=== PATIENT | male | born 1965 | race African-American/Black ===

== ENCOUNTER 2022-01-19 23:41 | Emergency (ER) | payer OTHER ==
[~2022-01-19] VITALS: Ht 175.3 cm; Wt 95.3 kg
[2022-01-20 00:21] LABS: BASOPHILS # (AUTO) 0.1 K/uL (0.0-0.2); BASOPHILS % (AUTO) 1.1 % (0.0-2.0); EOSINOPHILS % (AUTO) 1.4 % (0.0-6.0); HEMATOCRIT 40 % (39-51); HEMOGLOBIN 13.5 g/dL (13.5-17.5); LYMPHOCYTES % (AUTO) 23.8 % (20.0-44.0); MEAN CORPUSCULAR HGB CONC 34 g/dl (31.0-36.0); MEAN CORPUSCULAR VOLUME 88 fL (80-96); MONOCYTES # (AUTO) 0.6 K/uL (0.1-1.30); MONOCYTES % (AUTO) 6.6 % (2.0-12.0); NEUTROPHILS # (AUTO) 5.7 K/uL (1.8-8.9); NEUTROPHILS % (AUTO) 67.1 % (43.0-81.0); PLATELET COUNT (AUTO) 211 K/uL (150-450); RED BLOOD CELL COUNT(AUTO) 4.53 MIL/uL (4.5-6.0); WHITE BLOOD COUNT (AUTO) 8.4 K/uL (4.3-11.0)
[2022-01-20 00:24] VITALS: BP 143/81
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
[2022-01-20 00:27] LABS: BILIRUBIN,URINE NEGATIVE (NEGATIVE); COLOR,URINE YELLOW (YELLOW); LEUKOCYTE ESTERASE ,URINE NEGATIVE (NEGATIVE); NITRITE, URINE NEGATIVE (NEGATIVE); PROTEIN,URINE NEGATIVE (NEGATIVE); UGLUCOSE NEGATIVE (NEGATIVE); UROBILINOGEN,URINE 0.2 EU/dL (0.2)
[2022-01-20 00:36] LABS: CALCIUM, SERUM 8.8 mg/dL (8.5-10.1); CREATININE 1.2 mg/dL (0.6-1.3); POTASSIUM 4.1 mmol/L (3.5-5.1)
[2022-01-20 00:40] LABS: ALBUMIN 4.2 g/dL (3.4-5.0); BILIRUBIN,DIRECT 0.1 mg/dL (0.0-0.2); BILIRUBIN,TOTAL 0.4 mg/dL (0.2-1.0); TOTAL PROTEIN, SERUM 7.4 g/dL (6.4-8.2)
--- NOTE | 2022-01-20 04:16 | NUR ---
FACESHEET AND CLINICALS FAXED TO [facility].
--- NOTE | 2022-01-20 05:27 | NUR ---
ROWAN FROM [facility] CALLED. PT ACCEPTED AT [facility] UNDER DR. RAZO. FOR REPORT, CALL [phone] AND ASK TO BE REROUTED TO UNIT 1.
--- NOTE | 2022-01-20 05:31 | NUR ---
ARRANGED BLS TRANSPORT WITH [facility] AND SPOKE WITH RIMA. ETA IS 60 MIN
--- NOTE | 2022-01-20 05:53 | NUR ---
REPORT GIVEN TO ROXY MADDOX UNIT 1 RN FOR DARIO
--- NOTE | 2022-01-20 06:55 | NUR ---
[facility] AT BEDSIDE FOR TRANSPORT.
== END 2022-01-20 06:57 ==
LOC: ER 23:48
DX: R45.851 Suicidal ideations (principal); F19.10 Other psychoactive substance abuse, uncomplicated; Z20.822 Contact with and (suspected) exposure to COVID-19
CPT/HCPCS: 36415; 80048; 80076; 80143; 80307; 80320; 81003; 85025; 87426; 99285; C9803; G0480

== ENCOUNTER 2022-03-15 18:04 | Emergency (ER) | payer OTHER ==
[~2022-03-15] VITALS: Ht 180.3 cm; Wt 105.2 kg
--- NOTE | 2022-03-15 18:05 | NUR ---
SEEN AND EXAMINED BY DR GARCÍA
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
[2022-03-15 19:00] LABS: CALCIUM, SERUM 8.4 mg/dL (8.5-10.1); CARBON DIOXIDE 22 mmol/L (21-32); CHLORIDE 102 mmol/L (98-107); CREATININE 1.1 mg/dL (0.6-1.3); GLUCOSE 121 mg/dL (74-106); SODIUM SERUM 139 mmol/L (136-145); UREA NITROGEN, BLOOD 14 mg/dL (7-18)
--- NOTE | 2022-03-15 19:00 | NUR ---
URINE SAMPLE COLLECTED AND SENT TO LAB
[2022-03-15 19:04] LABS: ALANINE AMINOTRANSFERASE 19 U/L (12-78); ALBUMIN 4.5 g/dL (3.4-5.0); ALCOHOL, BLOOD < 3 mg/dL (0-0); ALKALINE PHOSPHATASE 88 U/L (46-116); ASPARTATE AMINOTRANSFERASE 11 U/L (15-37); BILIRUBIN,DIRECT 0.1 mg/dL (0.0-0.2); BILIRUBIN,TOTAL 0.4 mg/dL (0.2-1.0); TOTAL PROTEIN, SERUM 7.5 g/dL (6.4-8.2)
--- NOTE | 2022-03-15 19:08 | NUR ---
RAPID COVID SWAB DONE AND SENT TO LAB
[2022-03-15 19:54] LABS: BASOPHILS # (AUTO) 0.1 K/uL (0.0-0.2); BASOPHILS % (AUTO) 1.1 % (0.0-2.0); EOSINOPHILS % (AUTO) 2.1 % (0.0-6.0); HEMATOCRIT 40 % (39-51); HEMOGLOBIN 13.6 g/dL (13.5-17.5); LYMPHOCYTES # (AUTO) 2.4 K/uL (0.8-4.8); LYMPHOCYTES % (AUTO) 32.8 % (20.0-44.0); MEAN CORPUSCULAR HGB CONC 34 g/dl (31.0-36.0); MEAN CORPUSCULAR VOLUME 88 fL (80-96); MONOCYTES # (AUTO) 0.4 K/uL (0.1-1.30); MONOCYTES % (AUTO) 5.7 % (2.0-12.0); NEUTROPHILS # (AUTO) 4.2 K/uL (1.8-8.9); NEUTROPHILS % (AUTO) 58.3 % (43.0-81.0); PLATELET COUNT (AUTO) 171 K/uL (150-450); RED BLOOD CELL COUNT(AUTO) 4.47 MIL/uL (4.5-6.0); WHITE BLOOD COUNT (AUTO) 7.2 K/uL (4.3-11.0)
[2022-03-15 20:50] LABS: BILIRUBIN,URINE NEGATIVE (NEGATIVE); COLOR,URINE YELLOW (YELLOW); LEUKOCYTE ESTERASE ,URINE NEGATIVE (NEGATIVE); NITRITE, URINE NEGATIVE (NEGATIVE); PROTEIN,URINE NEGATIVE (NEGATIVE); UGLUCOSE NEGATIVE (NEGATIVE); UROBILINOGEN,URINE 0.2 EU/dL (0.2)
--- NOTE | 2022-03-15 22:49 | NUR ---
facesheet and clinicals faxed to [facility].
--- NOTE | 2022-03-16 02:05 | NUR ---
ACCEPTED AT [facility] ACCEPTING MD DR KERR REPORT
--- NOTE | 2022-03-16 02:28 | NUR ---
CALLED [facility] FOR TRANSPORT PER JOVANNI ETA- 70-90 MIN.
--- NOTE | 2022-03-16 03:42 | NUR ---
report given to ivania at [facility]
--- NOTE | 2022-03-16 04:13 | NUR ---
picked up by [facility] unit 330 in stable condition. belongings transferred with patient.
[2022-03-16 04:30] VITALS: BP 152/86
== END 2022-03-16 04:20 ==
LOC: ER 18:13
DX: R45.851 Suicidal ideations (principal); F19.10 Other psychoactive substance abuse, uncomplicated; Z20.822 Contact with and (suspected) exposure to COVID-19; F15.10 Other stimulant abuse, uncomplicated; F10.10 Alcohol abuse, uncomplicated; Y90.0 Blood alcohol level of less than 20 mg/100 ml; Z59.00 Homelessness unspecified; F20.0 Paranoid schizophrenia
CPT/HCPCS: 36415; 80048; 80076; 80143; 80307; 80320; 81003; 85025; 87426; 99285; C9803; G0480

== ENCOUNTER 2022-05-10 01:53 | Emergency (ER) | payer OTHER ==
[~2022-05-10] VITALS: Ht 182.9 cm; Wt 97.5 kg
--- NOTE | 2022-05-10 02:20 | NUR ---
BIBSELF C/O +SI NO PLAN, WANTS VOL PSYCH ADMIT. -HI . PT A/OX4. TOLERATING R/A WELL WITH NO SOB, RESP EVEN AND NON LABORED. CONNECTED PT TO POX AND MONITOR. PT IN GOWN, BELONGINGS COLLECTED AND IN LOCKER, WANDED BY SECURITY. SAFETY MEASURES IN PLACE.
--- NOTE | 2022-05-10 02:31 | NUR ---
URINE COLLECTED SENT TO LAB
--- NOTE | 2022-05-10 02:32 | NUR ---
COVID SWAB COLLECTED SENT TO LAB
--- NOTE | 2022-05-10 02:35 | NUR ---
PINKING SEWING MACHINE OPERATOR AT PT'S BEDSIDE
[2022-05-10 02:56] LABS: BILIRUBIN,URINE NEGATIVE (NEGATIVE); COLOR,URINE YELLOW (YELLOW); LEUKOCYTE ESTERASE ,URINE NEGATIVE (NEGATIVE); NITRITE, URINE NEGATIVE (NEGATIVE); PH,URINE 6.5 (5.0-8.0); PROTEIN,URINE NEGATIVE (NEGATIVE); UGLUCOSE NEGATIVE (NEGATIVE); UROBILINOGEN,URINE 0.2 EU/dL (0.2)
[2022-05-10 03:16] LABS: BASOPHILS # (AUTO) 0.1 K/uL (0.0-0.2); BASOPHILS % (AUTO) 1.3 % (0.0-2.0); HEMATOCRIT 42 % (39-51); HEMOGLOBIN 14.1 g/dL (13.5-17.5); LYMPHOCYTES # (AUTO) 2.7 K/uL (0.8-4.8); LYMPHOCYTES % (AUTO) 43.2 % (20.0-44.0); MEAN CORPUSCULAR HGB CONC 34 g/dl (31.0-36.0); MEAN CORPUSCULAR VOLUME 88 fL (80-96); MONOCYTES # (AUTO) 0.5 K/uL (0.1-1.30); MONOCYTES % (AUTO) 8.2 % (2.0-12.0); NEUTROPHILS # (AUTO) 2.9 K/uL (1.8-8.9); NEUTROPHILS % (AUTO) 45.3 % (43.0-81.0); PLATELET COUNT (AUTO) 239 K/uL (150-450); RED BLOOD CELL COUNT(AUTO) 4.72 MIL/uL (4.5-6.0); WHITE BLOOD COUNT (AUTO) 6.4 K/uL (4.3-11.0)
[2022-05-10 03:47] LABS: ALANINE AMINOTRANSFERASE 34 U/L (12-78); ALBUMIN 4.7 g/dL (3.4-5.0); ALKALINE PHOSPHATASE 96 U/L (46-116); ASPARTATE AMINOTRANSFERASE 24 U/L (15-37); BILIRUBIN,DIRECT 0.1 mg/dL (0.0-0.2); BILIRUBIN,TOTAL 0.6 mg/dL (0.2-1.0); CARBON DIOXIDE 27 mmol/L (21-32); CHLORIDE 101 mmol/L (98-107); GLUCOSE 114 mg/dL (74-106); POTASSIUM 3.9 mmol/L (3.5-5.1); SODIUM SERUM 138 mmol/L (136-145); TOTAL PROTEIN, SERUM 8.5 g/dL (6.4-8.2); UREA NITROGEN, BLOOD 13 mg/dL (7-18)
[2022-05-10 03:48] LABS: ACETAMINOPHEN 0 ug/ml (10-30); ALCOHOL, BLOOD < 3 mg/dL (0-0)
--- NOTE | 2022-05-10 04:09 | NUR ---
FACESHEET AND CLINICALS FAXED TO [facility].
--- NOTE | 2022-05-10 08:55 | NUR ---
DOMINGA called [facility] TEL:[phone] regarding acceptance and Suma stated she is waiting to hear feeback from linen room houseperson. Noted.
--- NOTE | 2022-05-10 09:57 | NUR ---
CALLED [facility] WILL GET BACK TO US AFTER 1200 PER LADAN.
--- NOTE | 2022-05-10 10:29 | NUR ---
SS consult: SS Consult requested for SI. The pt. is a 56 year-old Black male patient who came in for SI. Upon SS consult, the pt. is Alert & Oriented x 4 and makes good eye contact. The pt. appears well-groomed with anxious mood & affect. Pt.'s has slightly slurred speech possibly due to teeth. Per pt. he has been diagnosed with Paranoid Schizophrenia in the past and per pt. his medication have not been working for him anymore. Per pt. he has been on Remeron and Risperdal for a long time. Pt. stated he is currently experiencing thoughts of suicide and has a history of multiple suicide attempts. Pt. denies current HI and states he has intermittent paranoid hallucinations. Per pt. he sees and hears people that are following him. SW explored pt.'s living situation. Patient states he currently resides at home with family [[address] [facility] [address]; [phone]]. SW explored pt.'s drug & ETOH use. Pt. states he snorts Meth or Cocaine if he is hanging out with his "bad friends" and likes to drink beer. Sper pt. he has gone to [facility] before for drug and alcohol rehab. Per pt. he is ambulatory and independent with all his ADL's. DOMINGA explored pt.'s support system. Pt. states his family is supportive and he sees psychiatrists at [facility] when he needs his medications adjusted. Plan: SW was referred pt. to [facility] [[address] [place] [address] FAX:[phone]] for inpatient psychiatric treatment. DOMINGA provided pt. with mental health and he accepted them. DOMINGA provided pt. with the following resources: ADDICTION RESOURCES For Drugs and Alcohol [facility] sober living Referrals For Rehabilitation once sober Address:[address] [place] [address] [facility] Rehabilitation Program [address] [place] [address] Detox/residential [facility] Substance Abuse Helpline ([facility]) Outpatient, residential treatment, recovery support for youth/adults [facility] www.actionfamilycounseling.MinoMonsters [facility] Teen programs for drug/alcohol education and support All Lucero Saeed. Program for adults, sliding scale provides support and education [facility] www.Agile Edge TechnologiesLumidigmation.org [place]; Detox/residential treatment programs; transition to sober living [facility] www.cri-help.org [place]; Outpatient and residential treatment programs; transition to sober living [facility] TEL: [phone] [facility] [place] [facility] Brandon Guerra; Outpatient education and supportive programs for teens and adults [place] [facility] www.[facility].org [place]; Residential treatment and work program for females only [facility] www.[facility].StyleSeek [place]: Outpatient/residential treatment program for teens and young adults [facility] www.[facility].org [facility] Detox, inpatient, outpatient for adults and youth [facility], [facility]. [place]; Outpatient programs and referrals to community residential programs. Alcoholics Anonymous -SFV information and meeting and scheduleswww.aa-intergroup.org Lauri https://al-anon.org/ [place] support groups for family of alcoholics. Marijuana Anonymous www.madistrict6.org -SFV listing of meetings Narcotics Anonymous www.na.org SOBER LIVING RESOURCES [facility] www.soberhousing.net A non-profit agency that provides resources to recovery and sober living homes throughout [facility] Men's Sober Living Homes: A Work in Progress, [facility], [place] [facility] Women's Sober Living Homes: [facility] x [phone] My New ALEX Leonardo [facility]Los [facility] Coed Sober Living Homes: [facility] [place] Counseling--Outpatient [facility] [address], [place] [address] (Specializes in in-depth psychotherapy for emotional distress: anxiety, depression, interpersonal conflicts, life transitions, childhood abuse) [facility] [address] [place] [address] (Assist with solving problem marital difficulties, separation & divorce, aging parents, & grief, chronic & terminal illness) [facility] [address] [place] [address] (Deal with loss & grief, anxiety, marital difficulties) Homebound/Mental Health Services [address], [address] [place] [address] (Provide in-home mental services to people who are incapable of leaving their homes) [facility] Needs of the Elderly Senior Service/Resource Center [address] [place] [address] [facility] [address] [place] [address] Mental Health Services Shea Didier [place] [address] [place] [address] Services: Outpatient therapy for children, teens, young adults, adults, older adults, and families; Psychiatric services, medication support Psychiatric Outpatient Services [facility] Partial Hospitalization and Intensive Outpatient Program (Managed Care and [place] Only)[address] [address] [facility] [phone] [facility] Partial Hospitalization and Outpatient [address] [place], [place] [phone] [facility] [address] [place], [place] [phone] [facility] Partial Hospitalization and Outpatient Shejojr[address] Emmehul [facility] Brandon Guerra, [phone] Crisis and Hotline Telephone Numbers 24-Hour service unless stated [place] Crisis Hotlines: [facility] Mental Health/Crisis Line........797.161.4034 Suicide Prevention Center (24 Hours).......191.232.5697 Suicide Prevention Crisis Center.......423.995.1753 (24 Hours) Assaults Against Women Hotline.........918.622.2251 (24 Hours -- [facility]) Women and Children Crisis Alf...........[phone] (24 Hours) Child Abuse Hotline............509.837.2970 [facility] Childrens Services [facility] Treatment [facility] (24 Hours)..........[phone] Alcoholics Anonymous (24 Hours)..........[phone] Cocaine Anonymous (24 Hours)............[phone] Narcotics Anonymous (24 Hours)..........[phone] [address] [facility] [address], [place] [address]
--- NOTE | 2022-05-10 14:15 | NUR ---
LADAN FROM [facility] CALLED, PT ACCEPTED UNDER DR. KERR TO [facility] PLEASE CALL [phone] FOR REPORT.
--- NOTE | 2022-05-10 14:22 | NUR ---
ETA FOR PICKUP IS 1540 AFTER SHIFT REPORT
[2022-05-10 14:30] VITALS: BP 127/77
--- NOTE | 2022-05-10 15:45 | NUR ---
patient picked up by [facility] in no distress, all pateint's belongings sent with patient, stable at this time, denies any pain.
== END 2022-05-10 15:45 ==
LOC: ER 01:56
DX: R45.851 Suicidal ideations (principal); F15.10 Other stimulant abuse, uncomplicated; Z20.822 Contact with and (suspected) exposure to COVID-19; Z59.00 Homelessness unspecified; F20.0 Paranoid schizophrenia
CPT/HCPCS: 99285; 85025; 80048; 80076; 81003; 36415; 87426; 80143; 80320; 80307; C9803; G0480

== ENCOUNTER 2022-08-25 19:46 | Emergency (ER) | payer OTHER ==
[~2022-08-25] VITALS: Ht 180.3 cm; Wt 106.6 kg
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
[2022-08-25 21:17] LABS: BILIRUBIN,URINE NEGATIVE (NEGATIVE); COLOR,URINE YELLOW (YELLOW); LEUKOCYTE ESTERASE ,URINE NEGATIVE (NEGATIVE); NITRITE, URINE NEGATIVE (NEGATIVE); PROTEIN,URINE TRACE mg/dl (NEGATIVE); UGLUCOSE NEGATIVE (NEGATIVE); UROBILINOGEN,URINE 0.2 EU/dL (0.2)
[2022-08-25 21:23] LABS: BASOPHILS # (AUTO) 0.1 K/uL (0.0-0.2); BASOPHILS % (AUTO) 1.1 % (0.0-2.0); EOSINOPHILS % (AUTO) 0.4 % (0.0-6.0); HEMATOCRIT 43 % (39-51); HEMOGLOBIN 14.5 g/dL (13.5-17.5); LYMPHOCYTES # (AUTO) 2.9 K/uL (0.8-4.8); LYMPHOCYTES % (AUTO) 32.3 % (20.0-44.0); MEAN CORPUSCULAR HGB CONC 34 g/dl (31.0-36.0); MEAN CORPUSCULAR VOLUME 88 fL (80-96); MONOCYTES # (AUTO) 0.7 K/uL (0.1-1.30); MONOCYTES % (AUTO) 7.3 % (2.0-12.0); NEUTROPHILS # (AUTO) 5.3 K/uL (1.8-8.9); NEUTROPHILS % (AUTO) 58.9 % (43.0-81.0); PLATELET COUNT (AUTO) 221 K/uL (150-450); RED BLOOD CELL COUNT(AUTO) 4.88 MIL/uL (4.5-6.0)
[2022-08-25 21:39] LABS: BACTERIA,URINE 3+ /HPF (None Seen); MUCUS,URINE Few /LPF (None Seen); RBC,URINE 0-2 /HPF (0-2); SQUAMOUS EPITHELIAL CELL,UR 0-2 /HPF (None Seen); WBC,URINE 0-2 /HPF (0-3)
[2022-08-25 21:48] LABS: ALANINE AMINOTRANSFERASE 38 U/L (12-78); ALBUMIN 4.6 g/dL (3.4-5.0); ALCOHOL, BLOOD < 3 mg/dL (0-0); ALKALINE PHOSPHATASE 80 U/L (46-116); ASPARTATE AMINOTRANSFERASE 31 U/L (15-37); BILIRUBIN,DIRECT 0.2 mg/dL (0.0-0.2); BILIRUBIN,TOTAL 0.6 mg/dL (0.2-1.0); CARBON DIOXIDE 27 mmol/L (21-32); CHLORIDE 101 mmol/L (98-107); CREATININE 1.2 mg/dL (0.6-1.3); GLUCOSE 129 mg/dL (74-106); POTASSIUM 4.2 mmol/L (3.5-5.1); SODIUM SERUM 136 mmol/L (136-145); TOTAL PROTEIN, SERUM 8.4 g/dL (6.4-8.2); UREA NITROGEN, BLOOD 15 mg/dL (7-18)
[2022-08-25 23:01] LABS: ACETAMINOPHEN 0 ug/ml (10-30)
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
--- NOTE | 2022-08-26 04:16 | NUR ---
PRAVIN AT PT'S BEDSIDE FOR EVAL
--- NOTE | 2022-08-26 04:38 | NUR ---
PT IS MEDICALLY AND PSYCHIATRICALLY CLEARED FOR DISCHARGE. PT IS IN STABLE CONDITION. ALL BELONGINGS WAS GIVEN BACK TO THE PATIENT.
[2022-08-26 04:40] VITALS: BP 148/75
== END 2022-08-26 04:48 | disposition home or self-care (01) ==
LOC: ER 19:56
DX: R45.851 Suicidal ideations (principal); F15.10 Other stimulant abuse, uncomplicated; F20.0 Paranoid schizophrenia; F32.A Depression, unspecified; Z20.822 Contact with and (suspected) exposure to COVID-19
CPT/HCPCS: 99285; 85025; 80048; 87086; 80076; 81001; 36415; 87426; 80143; 80320; 80307; C9803; G0480

== ENCOUNTER 2022-08-26 10:28 | Emergency (ER) | payer OTHER ==
[~2022-08-26] VITALS: Ht 180.3 cm; Wt 106.6 kg
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
[2022-08-26 11:08] LABS: BASOPHILS # (AUTO) 0.1 K/uL (0.0-0.2); BASOPHILS % (AUTO) 1.5 % (0.0-2.0); EOSINOPHILS % (AUTO) 0.5 % (0.0-6.0); HEMATOCRIT 43 % (39-51); LYMPHOCYTES # (AUTO) 2.1 K/uL (0.8-4.8); LYMPHOCYTES % (AUTO) 31.7 % (20.0-44.0); MEAN CORPUSCULAR HGB CONC 33 g/dl (31.0-36.0); MEAN CORPUSCULAR VOLUME 89 fL (80-96); MONOCYTES # (AUTO) 0.7 K/uL (0.1-1.30); MONOCYTES % (AUTO) 9.8 % (2.0-12.0); NEUTROPHILS # (AUTO) 3.8 K/uL (1.8-8.9); NEUTROPHILS % (AUTO) 56.5 % (43.0-81.0); PLATELET COUNT (AUTO) 227 K/uL (150-450); WHITE BLOOD COUNT (AUTO) 6.8 K/uL (4.3-11.0)
[2022-08-26 11:20] LABS: CALCIUM, SERUM 9.2 mg/dL (8.5-10.1); CARBON DIOXIDE 31 mmol/L (21-32); CHLORIDE 100 mmol/L (98-107); CREATININE 1.2 mg/dL (0.6-1.3); GLUCOSE 121 mg/dL (74-106); POTASSIUM 4.1 mmol/L (3.5-5.1); SODIUM SERUM 137 mmol/L (136-145); UREA NITROGEN, BLOOD 15 mg/dL (7-18)
--- NOTE | 2022-08-26 12:54 | NUR ---
GALEN ([facility]) [phone].
[2022-08-26 14:09] LABS: BILIRUBIN,URINE NEGATIVE (NEGATIVE); COLOR,URINE ORANGE (YELLOW); LEUKOCYTE ESTERASE ,URINE NEGATIVE (NEGATIVE); NITRITE, URINE NEGATIVE (NEGATIVE); PROTEIN,URINE 2+ mg/dl (NEGATIVE); UGLUCOSE NEGATIVE (NEGATIVE); UROBILINOGEN,URINE 0.2 EU/dL (0.2)
[2022-08-26 14:26] LABS: BACTERIA,URINE Few /HPF (None Seen); RBC,URINE 0-2 /HPF (0-2)
[2022-08-26 15:26] LABS: ALANINE AMINOTRANSFERASE 36 U/L (12-78); ALBUMIN 4.4 g/dL (3.4-5.0); ALCOHOL, BLOOD < 3 mg/dL (0-0); ALKALINE PHOSPHATASE 73 U/L (46-116); ASPARTATE AMINOTRANSFERASE 25 U/L (15-37); BILIRUBIN,DIRECT 0.2 mg/dL (0.0-0.2); BILIRUBIN,TOTAL 0.8 mg/dL (0.2-1.0)
--- NOTE | 2022-08-26 16:35 | NUR ---
FAXED CLINICALS TO [facility].
--- NOTE | 2022-08-26 16:45 | NUR ---
FAXED CLINICALS TO [facility] [phone]
--- NOTE | 2022-08-26 17:22 | NUR ---
ACCEPTED TO [facility] UNDER DR. MILA GLYNN UNIT ROOM 285-A CALL [phone] FOR REPORT.
--- NOTE | 2022-08-26 17:40 | NUR ---
[facility] CALLED FOR TRANSPORT WITH ETA 1900 PER KATHLEEN.
--- NOTE | 2022-08-26 19:21 | NUR ---
CALLED TO GIVE REPORT, NURSE MCKEON NOT AVAILABLE AT THIS TIME
--- NOTE | 2022-08-26 20:00 | NUR ---
PER [facility], UNIT DELAYED ANOTHER 45 TO 60 MINUTES.
[2022-08-26 20:07] VITALS: BP 148/89
--- NOTE | 2022-08-26 20:08 | NUR ---
REPORT GIVEN TO LINDA ROSENTHAL FOR DARIO
--- NOTE | 2022-08-26 21:46 | NUR ---
[facility] AT BEDSIDE FOR TRANSPORTATION
== END 2022-08-26 22:13 ==
LOC: ER 10:30
DX: R45.851 Suicidal ideations (principal); F15.10 Other stimulant abuse, uncomplicated; R07.89 Other chest pain; F41.9 Anxiety disorder, unspecified; F20.0 Paranoid schizophrenia
CPT/HCPCS: 36415; 71045-TC; 80048-TC; 80076-TC; 81001; 84484-TC; 85025-TC; G0480

== ENCOUNTER 2024-01-16 03:00 | Emergency (ER) | payer OTHER ==
[~2024-01-16] VITALS: Ht 180.3 cm; Wt 111.1 kg
[2024-01-16 05:28] VITALS: BP 157/96; TEMP 98; O2SAT 97
[2024-01-16 06:42] LABS: BASOPHILS # (AUTO) 0.1 K/uL (0.0-0.2); BASOPHILS % (AUTO) 1.7 % (0.0-2.0); EOSINOPHILS # (AUTO) 0.3 K/uL (0.0-0.7); EOSINOPHILS % (AUTO) 3.6 % (0.0-6.0); HEMATOCRIT 44 % (39-51); HEMOGLOBIN 14.8 g/dL (13.5-17.5); LYMPHOCYTES # (AUTO) 2.5 K/uL (0.8-4.8); LYMPHOCYTES % (AUTO) 32.1 % (20.0-44.0); MEAN CORPUSCULAR HEMOGLOBIN 30 PG (26.0-33.0); MEAN CORPUSCULAR HGB CONC 34 g/dl (31.0-36.0); MEAN CORPUSCULAR VOLUME 90 fL (80-96); MONOCYTES # (AUTO) 0.8 K/uL (0.1-1.30); MONOCYTES % (AUTO) 9.8 % (2.0-12.0); NEUTROPHILS # (AUTO) 4.1 K/uL (1.8-8.9); NEUTROPHILS % (AUTO) 52.8 % (43.0-81.0); PLATELET COUNT (AUTO) 212 K/uL (150-450); RED BLOOD CELL COUNT(AUTO) 4.87 MIL/uL (4.5-6.0); RED CELL DISTRIBUTION WIDTH 13.3 % (11.5-15.0); WHITE BLOOD COUNT (AUTO) 7.7 K/uL (4.3-11.0)
[2024-01-16 06:49] LABS: APPEARANCE,URINE CLEAR (CLEAR); BILIRUBIN,URINE NEGATIVE (NEGATIVE); BLOOD, URINE NEGATIVE Ery/uL (NEGATIVE); COLOR,URINE YELLOW (YELLOW); KETONES,URINE NEGATIVE (NEGATIVE); LEUKOCYTE ESTERASE ,URINE NEGATIVE (NEGATIVE); NITRITE, URINE NEGATIVE (NEGATIVE); PROTEIN,URINE NEGATIVE (NEGATIVE); UGLUCOSE NEGATIVE (NEGATIVE); UROBILINOGEN,URINE 0.2 EU/dL (0.2)
[2024-01-16 06:52] LABS: AMPHETAMINE, URINE POSITIVE (NEGATIVE); BARBITURATE, URINE NEGATIVE (NEGATIVE); BENZODIAZEPINE, URINE NEGATIVE (NEGATIVE); CANNABINOID, URINE NEGATIVE (NEGATIVE); COCCAINE, URINE NEGATIVE (NEGATIVE); OPIATE, URINE NEGATIVE (NEGATIVE); PHENCYCLIDINE SCREEN,URINE POSITIVE (NEGATIVE)
[2024-01-16 06:55] LABS: CALCIUM, SERUM 8.8 mg/dL (8.5-10.1); CARBON DIOXIDE 30 mmol/L (21-32); CHLORIDE 102 mmol/L (98-107); GLUCOSE 112 mg/dL (74-106); POTASSIUM 4.2 mmol/L (3.5-5.1); SODIUM SERUM 138 mmol/L (136-145); UREA NITROGEN, BLOOD 12 mg/dL (7-18)
[2024-01-16 07:01] LABS: ACETAMINOPHEN <10 ug/ml (10-30); ALANINE AMINOTRANSFERASE 55 U/L (12-78); ALCOHOL, BLOOD < 3 mg/dL (0-10); ALKALINE PHOSPHATASE 86 U/L (46-116); ASPARTATE AMINOTRANSFERASE 23 U/L (15-37); BILIRUBIN,DIRECT 0.1 mg/dL (0.0-0.2); BILIRUBIN,TOTAL 0.4 mg/dL (0.2-1.0); TOTAL PROTEIN, SERUM 7.5 g/dL (6.4-8.2)
== END 2024-01-16 09:23 ==
LOC: ER 03:08
DX: R45.851 Suicidal ideations (principal); F20.0 Paranoid schizophrenia; Z20.822 Contact with and (suspected) exposure to COVID-19
CPT/HCPCS: 36415; 80048-TC; 80076-TC; 85025-TC; G0480